=== PATIENT | male | born 1945 | race Caucasian/White ===

== ENCOUNTER 2017-07-11 17:48 | Emergency (ER) | payer MEDICARE, OTHER ==
[~2017-07-11] VITALS: Ht 175.3 cm; Wt 109.0 kg
[2017-07-11 17:54] VITALS: BP 132/78; PULSE 79; RESP 18; TEMP 98.6; O2SAT 98
--- NOTE | 2017-07-11 18:52 | PD ---
HPI Chief Complaint: Laceration/Skin Injury Time Seen by Provider: 18:41 Travel History International Travel<30 days: No Contact w/Intl Traveler<30days: No Traveled to known affect area: No History of Present Illness HPI 71-year-old male presents emergency department with complaint of a small cut to his left knee after kneeling on a piece of glass on his carpet. He is on Coumadin and his last INR was 2.6 on Wednesday. He has a self meter. Unknown tetanus status. Has applied pressure to control bleeding. Says he thinks the bleeding is already stopped. Denies pain. Symptoms are mild in severity. No primary care provider this area at this time, and is not surgical wound. No known allergies. History of atrial fibrillation and COPD. Has no other medical complaints. No other modifying factors or associated signs and symptoms. PFSH Past Medical History Hx Anticoagulant Therapy: Yes (COUMADIN) Cardiovascular Problems: Yes (A-FIB) Cerebrovascular Accident: Yes (CVA 2000) Social History Tobacco Use: No Allergies-Medications (Allergen,Severity, Reaction): Coded Allergies: No Known Allergies (Verified Allergy, Unknown, 07/11/17) Review of Systems Except as stated in HPI: all other systems reviewed are Neg Physical Exam Narrative GENERAL: Well-nourished, well-developed elderly male patient, in no acute distress SKIN: Warm and dry. Small superficial cut just below the left knee measuring approximately 1 cm; bleeding controlled and there is no active bleeding at this time. HEAD: Atraumatic. Normocephalic. EYES: Pupils equal and round. No scleral icterus. No injection or drainage. ENT: Mucosa pink and moist. Airway patent. NECK: Trachea midline. CARDIOVASCULAR: Regular rate. RESPIRATORY: No accessory muscle use. GASTROINTESTINAL: Rounded. MUSCULOSKELETAL: No obvious deformities. No clubbing. No cyanosis. No edema. NEUROLOGICAL: Awake and alert. Oriented 3. No obvious cranial nerve deficits. Motor grossly within normal limits. Normal speech. PSYCHIATRIC: Appropriate mood and affect; insight and judgment normal. Data Data Last Documented VS Vital Signs Date Time Temp Pulse Resp B/P (MAP) Pulse Ox O2 Delivery O2 Flow Rate FiO2 07/11/17 17:54 98.6 79 18 132/78 (96) 98 Orders Orders Ed Discharge Order (07/11/17 18:52) [facility] Medical Decision Making Medical Screen Exam Complete: Yes Emergency Medical Condition: Yes Medical Record Reviewed: Yes Differential Diagnosis Cut, laceration, medical clearance Narrative Course 71-year-old male with a cut to his left lower knee. He is on Coumadin. INR is 2.6 last checked on Wednesday by the patient. Bleeding is controlled. Dermabond was used to repair the laceration. See my procedure note for laceration repair. Tetanus updated in the ER. Instructed patient to follow up with primary care provider. Patient verbalizes understanding and agreement with treatment plan. Patient is medically cleared and stable for discharge. Discussed reasons to return to the emergency department. Patient agrees with treatment plan. The patients vital signs are stable and the patient is stable for outpatient follow-up and treatment. Patient discharged home, stable and in no acute distress. Procedures Procedure Narrative LACERATION LOCATION: Just below the left knee LENGTH: 1 cm Dermabond was used to close the laceration REPAIR: The area of the laceration was prepped with normal saline. The wound was closed using Dermabond. This was a single layer repair. The patient was advised to keep the dressing clean and dry. Patient tolerated the procedure well. Diagnosis Primary Impression: Cut of lower leg Referrals: Primary Care Physician Patient Instructions: General Instructions, Laceration (ED) Additional Instructions: Keep area clean and dry Keep the Dermabond in place for as long as it maintains If the Dermabond starts to peel up on the sides use toenail clippers to clip the edges Do not feel the Dermabond off Allow the Dermabond to follow-up on its own Follow-up with primary care provider Return to the emergency department immediately with worsening of symptoms Med/Other Pt SpecificInfo: No Change to Meds, No Meds Exist/No RX given Disposition: 01 DISCHARGE HOME Condition: Stable Andressa Thomas DIRECTOR OF MARKET ANALYSIS Jul 11, 2017 18:52
[2017-07-11] MEDS ORDERED: TETANUS/DIPHTHERIA TOXOID ADULT 0.5 ML VIAL IM ONE (19:00)
== END 2017-07-11 19:34 | disposition home or self-care (01) ==
LOC: NEPD 17:48
DX: S81.012A Laceration without foreign body, left knee, initial encounter (principal); I48.91 Unspecified atrial fibrillation; W25.XXXA Contact with sharp glass, initial encounter; Z23 Encounter for immunization; Z79.01 Long term (current) use of anticoagulants
CPT/HCPCS: 12001; 90471; 90714